=== PATIENT | female | born 1965 | race Caucasian/White ===

== ENCOUNTER 2017-08-21 14:27 | Emergency (ER) | payer SELFPAY ==
[~2017-08-21] VITALS: Ht 170.1 cm; Wt 59.0 kg
[~2017-08-21 14:27] MED LIST: ALBUTEROL0.09 MG/A2 IH; AMOXIL500 MG PO; CLARITIN-D 12HR1 T12 PO; DOXYCYCLINE MO100 MG PO; LOMOTIL 0.025 M1 TA1 PO; MEDROL DOSEPAK4 MG PO; MOTRIN600 MG PO; NKHM; PHENERGAN W/DM120 ML PO; PHENERGAN25 M1 PO; SUDAFED60 MG PO; TRAMADOL HCL50 MG PO
[2017-08-21] MEDS ORDERED: VIBRAMYCIN100 MG PO (15:49)
[2017-08-21] MEDS ORDERED: VENTOLIN 02.5 MG/3 M INH (15:49)
[2017-08-21] MEDS ORDERED: DELTASONE20 M1 PO (15:49)
== END 2017-08-21 15:53 | disposition home or self-care (01) ==
LOC: ED 14:27
DX: J20.9 Acute bronchitis, unspecified (principal); F17.200 Nicotine dependence, unspecified, uncomplicated; Z88.0 Allergy status to penicillin; Z88.5 Allergy status to narcotic agent